=== PATIENT | male | born 1945 | race Caucasian/White ===

== ENCOUNTER 2018-02-21 14:58 | Observation (INO) | payer MEDICARE, BC ==
[~2018-02-21] VITALS: Ht 190.5 cm; Wt 97.7 kg
[2018-02-21 15:04] VITALS: BP 167/97
[2018-02-21 16:00] LABS: HEMATOCRIT 47.8 % (42.0-52.0); HEMOGLOBIN 15.7 gm/dL (14.0-18.0); MCH 30.3 pg (26.0-34.0); MCHC 32.9 g/dL (28.0-37.0); NUCLEATED RBCS 0 /100WBC; PLATELET COUNT* 149 thou/uL (150-400); RBC 5.19 mil/uL (4.50-6.00); RDW-CV 13.8 % (10.5-14.5); WBC 16.3 thou/uL (4.0-11.0)
[2018-02-21 16:06] LABS: ANION GAP 4 mmol/L (7-16); BUN 19 mg/dL (7-18); CALCIUM 9.1 mg/dL (8.5-10.1); CHLORIDE 104 mmol/L (98-107); CO2 29 mmol/L (21-32); CREATININE 1.3 mg/dL (0.6-1.3); GLUCOSE 128 mg/dL (70-99); POTASSIUM 3.7 mmol/L (3.5-5.1); SODIUM 137 mmol/L (136-145)
[2018-02-21 16:14] LABS: ALBUMIN 3.5 g/dL (3.4-5.0); ALKALINE PHOSPHATASE 58 U/L (46-116); SGOT 23 U/L (15-37); SGPT 34 U/L (30-65); TOTAL BILIRUBIN 0.7 mg/dL (<0.1-1.0); TOTAL PROTEIN 6.4 g/dL (6.4-8.2); TROPONIN-I LEVEL <0.06 ng/mL (<0.06)
[2018-02-21 16:16] LABS: INFLUENZA A ANTIGEN None Detected (None Detect); INFLUENZA B ANTIGEN None Detected (None Detect)
[2018-02-21 16:26] LABS: ABSOLUTE LYMPHOCYTES 0.8 thou/uL (0.8-5.3); ABSOLUTE MONOCYTES 0.5 thou/uL (0.0-1.2); ATYPICAL LYMPHS 2 %; PLATELET ESTIMATE ADEQUATE
[2018-02-21 16:31] LABS: URINE BILIRUBIN NEGATIVE (Negative); URINE BLOOD 1+ (Negative); URINE CLARITY CLEAR; URINE COLOR YELLOW; URINE GLUCOSE-RANDOM NEGATIVE (Negative); URINE KETONES TRACE (Negative); URINE LEUKOCYTES-REFLEX NEGATIVE (Negative); URINE NITRITE-REFLEX NEGATIVE (Negative); URINE PROTEIN NEGATIVE (Negative); URINE UROBILINOGEN 0.2 E.U./dl (0.2-1.0)
[2018-02-21 16:38] LABS: BACTERIA-REFLEX None Seen /HPF (None Seen); CASTS None Seen /LPF (None Seen); CRYSTALS None Seen /LPF (None Seen); MUCUS 4-6 Moderate strn/LPF (None Seen); SQUAMOUS 0-3 Few /LPF (0-3); URINE RBC 0-2 Rare /HPF (0-2); URINE WBC-REFLEX None Seen /HPF (0-5)
[2018-02-21 17:57] VITALS: BP 137/67
[2018-02-21 18:15] VITALS: BP 117/68
[2018-02-21 19:20] VITALS: BP 102/42
[2018-02-21 20:30] VITALS: BP 109/54
[2018-02-22] VITALS (7 sets, daily range): BP systolic 91–143; BP diastolic 36–78
[2018-02-22 04:23] LABS: ABSOLUTE LYMPHOCYTES 1.2 thou/uL (0.8-5.3); ABSOLUTE MONOCYTES 0.8 thou/uL (0.0-1.2); ABSOLUTE NEUTROPHILS 11.4 thou/uL (1.6-8.1); BASOPHILS 0.3 %; HEMATOCRIT 42.7 % (42.0-52.0); MCH 30.7 pg (26.0-34.0); MCHC 32.8 g/dL (28.0-37.0); MCV 93.6 fL (80.0-100.0); MONOCYTES 5.6 %; MPV 10.5 fl. (7.2-11.1); NUCLEATED RBCS 0 /100WBC; PLATELET COUNT* 130 thou/uL (150-400); POLYS 85.1 %; RBC 4.57 mil/uL (4.50-6.00); RDW-CV 14.4 % (10.5-14.5); WBC 13.4 thou/uL (4.0-11.0)
[2018-02-22 04:47] LABS: ALBUMIN 2.7 g/dL (3.4-5.0); CALCIUM 7.4 mg/dL (8.5-10.1); CREATININE 1.3 mg/dL (0.6-1.3); POTASSIUM 3.8 mmol/L (3.5-5.1); TOTAL BILIRUBIN 0.5 mg/dL (<0.1-1.0); TOTAL PROTEIN 4.9 g/dL (6.4-8.2)
--- NOTE | 2018-02-22 11:42 | EKG ---
[place] [address] ELECTROCARDIOGRAM REPORT Name: JEREL DENNISON SR Room: [address] M.R.#: [id number] Admission: 02/21/18 Attend Phys: Fortino Lozano Discharge: Date of : 47 Report #: [id number] THIS REPORT FOR: //name// [facility] ED Test Date: 2018-02-21 Test Time: 15:32:54 Pat Name: JEREL DENNISON Department: Room: [facility] Gender: M Stoner Hand: DAVINA : 1945 Requested By: Edith Gleason Order Number: [id number] MD: Derrick Adams Measurements Intervals [place] Rate: 110 P: 47 ME: 137 QRS: -53 QRSD: 99 T: 58 QT: 315 QTc: 427 Interpretive Statements Sinus tachycardia Probable left atrial enlargement Left anterior fascicular block RSR' in V1 or V2, right VCD or RVH No previous ECG available for comparison Electronically Signed On 02-22-2018 11:42:44 [employer] by Derrick Adams [email or web address] <ELECTRONICALLY SIGNED> By: Derrick Adams MD, [facility] 02/22/18 1142 1532 1532 Derrick Adams MD, [facility] /EPI
[2018-02-22] MEDS ORDERED: VENTOLIN HFA 1818 GM INH (13:05)
[2018-02-22] MEDS ORDERED: PREDNISONE 10 M10 M1 PO (13:07)
[2018-02-22] MEDS ORDERED: AUGMENTIN 875-1 EACH PO (13:11)
[2018-02-22] MEDS ORDERED: PROTONIX40 M1 PO (13:12)
== END 2018-02-22 14:00 | disposition home or self-care (01) ==
LOC: M.ERS 14:58 → M.TBA-ER 16:53 → M.2W 16:53
PROVIDERS: Physician Assistant; ADMIT Internal Medicine
DX: J18.9 Pneumonia, unspecified organism (principal); A41.9 Sepsis, unspecified organism; R65.10 Systemic inflammatory response syndrome (SIRS) of non-infectious origin without acute organ dysfunction; R11.2 Nausea with vomiting, unspecified; F17.210 Nicotine dependence, cigarettes, uncomplicated; Z72.89 Other problems related to lifestyle; Z98.890 Other specified postprocedural states; Z23 Encounter for immunization